=== PATIENT | female | born 1945 | race Caucasian/White ===

== ENCOUNTER 2025-02-02 10:29 | Day surgery (SDC) | payer MEDICARE, OTHER ==
[~2025-02-02] VITALS: Ht 167.6 cm; Wt 115.0 kg
[~2025-02-02 10:29] MED LIST: FARXIGA5 MG PO; IBLOOD GLUCOSE TEST STRIP 1 EA TEST VI PRN; KLOR-CON 88 MEQ PO; LACTATED RINGER'S 1,000 ML IV SCH; LIDOCAINE HCL 1% 5 ML SDV INJ ONE; NORVASC2.5 MG PO; OMEPRAZOLE20 MG PO; TORSEMIDE20 MG PO; VITAMIN D250 MCG PO; ZYLOPRIM100 MG PO
[2025-02-02 10:40] VITALS: BP 127/65
[2025-02-02] MEDS ORDERED: LIDOCAINE HCL 2% 5 ML SDV ONE (12:35)
--- NOTE | 2025-02-02 13:16 | NUR ---
02/02/25 1316 Sheets,Clara 1254 PT ARRIVED TO PACU ON 4L VIA NC, PT ASLEEP AND SNORING NOTED. O2 SAT LOW 90S AND NC MOVED IN CORRECT PLACE AND O2 SLOWING INCREASING. PT NON REACTIVE TO TACTILE STIMULI. 1305 PT WAKES AND LOOKING AROUND ROOM, PT DENIES CONCERNS AND IS REORIENTED TO PACU. PLAN OF CARE DISCUSSED AND PT MOVED HERSELF UP IN BED. O2 REMOVED, O2 SAT MID 90S.
[2025-02-02 13:19] VITALS: BP 128/70
--- NOTE | 2025-02-07 16:41 | PATH ---
[facility] [address], [place] [address] Signed SPECIMEN(S): A EG JUNCTION BIOPSY SPECIMEN SOURCE: A. EG JUNCTION BIOPSY CLINICAL HISTORY: GERD, history of Llanes's esophagus FINAL PATHOLOGIC DIAGNOSIS: Gastroesophageal junction, biopsy: - Llanes's esophagus. - Glandular component with mild mixed chronic and acute inflammation and reactive epithelial cell changes. - No dysplasia or malignancy identified. COMMENT: As a part of [facility], this case received peer review by a second pathologist, with agreement for the above diagnosis. SDL MICROSCOPIC EXAMINATION: Histologic sections of all submitted blocks are examined by light microscopy. These findings, together with the gross examination, support the pathologic diagnosis. GROSS DESCRIPTION: The specimen, labeled and designated "Chucky GE junction biopsy," is received in formalin and consists of five jorgensen soft tissue fragments, ranging from 0.2-0.4 cm. Entirely submitted in (A1). VB (under the direct supervision of a pathologist) The Gross Description was prepared using a voice recognition system. The report was reviewed for accuracy; however, sound-alike word errors, addition and/or deletions may occur. If there are any questions about this report, please contact Client Services. ADDITIONAL NOTES: Immunohistochemical and/or in situ hybridization studies if performed in this case included appropriate positive controls that reacted as expected. This test was developed and its performance characteristics determined by [facility]. It has not been cleared or approved by the U.S. Food and Drug Administration. The FDA has determined that PATIENT NAME: GIOVANY SR PATHOLOGY DATE OF : 47 REPORT #: [id number] PHYSICIAN: MERLE GARRETT PCP: CHARLIE GODINEZ DO REPORT IS CONFIDENTIAL AND NOT TO BE RELEASED WITHOUT AUTHORIZATION [address] [address] Signed such clearance or approval is not necessary. This test is used for clinical purposes. It should not be regarded as investigational or for research. [facility] is certified under the Clinical Laboratory Improvement Amendments of 1988 (CLIA) as qualified to perform high complexity clinical laboratory testing. PERFORMING LABORATORY: Technical component was performed by [facility], [address] [place] [id number] (CLIA# [id number]). Professional interpretation was performed by [facility], [address] [place] [id number] (CLIA#: [id number]). Diagnostician: Denice Munoz MD Pathologist Electronically Signed 02/07/2025 Copies: ~ PATIENT NAME: GIOVANY SR PATHOLOGY DATE OF : 47 REPORT #: [id number] PHYSICIAN: MERLE GARRETT PCP: CHARLIE GODINEZ DO REPORT IS CONFIDENTIAL AND NOT TO BE RELEASED WITHOUT AUTHORIZATION
== END 2025-02-02 13:33 | disposition home or self-care (01) ==
LOC: DS 10:29 → OPS 10:29 → DS 13:30 → OPS 13:33
PROVIDERS: ATTEND Surgery
PROC: 0DB68ZX Excision of Stomach, Via Natural or Artificial Opening Endoscopic, Diagnostic (ICD-10-PCS; 2025-02-02)
PROC: 0DB58ZX Excision of Esophagus, Via Natural or Artificial Opening Endoscopic, Diagnostic (ICD-10-PCS; principal; 2025-02-02 11:20)
DX: K22.70 Barrett's esophagus without dysplasia (principal); K21.00 Gastro-esophageal reflux disease with esophagitis, without bleeding; K31.7 Polyp of stomach and duodenum; G47.33 Obstructive sleep apnea (adult) (pediatric); N18.30 Chronic kidney disease, stage 3 unspecified; I12.9 Hypertensive chronic kidney disease with stage 1 through stage 4 chronic kidney disease, or unspecified chronic kidney disease; E66.01 Morbid (severe) obesity due to excess calories; Z68.41 Body mass index [BMI] 40.0-44.9, adult; Z87.891 Personal history of nicotine dependence; Z79.899 Other long term (current) drug therapy; Z88.8 Allergy status to other drugs, medicaments and biological substances; Z90.49 Acquired absence of other specified parts of digestive tract
CPT/HCPCS: 00731; 36415; 87077; J2003; J2704; J7121